=== PATIENT | male | born 1995 | race Caucasian/White ===

== ENCOUNTER 2023-09-27 17:51 | Emergency (ER) | payer OTHER, SELFPAY ==
[2023-09-27 18:06] VITALS: BP 157/106; PULSE 85; TEMP 37.1; O2SAT 99; BMI 29.2
--- NOTE | 2023-09-27 18:10 | XR_ITS ---
[address] [address] Patient Name: JAY JAY PARRA MRN: [id number] date: 1995 Sex: M Assigned Patient Location: ER Current Patient Location: ER Accession/Order Number: [id number] Exam Date: 09/27/2023 18:20 Report Date: 09/27/2023 18:45 At the request of: REUBEN FIELDS Procedure: XR finger RT min 2V Exam: Radiographs: XR finger RT min 2V Reason for exam: finger laceration Comparison: None XR/XR finger RT min 2V IMPRESSION: Wound to the distal right third digit soft tissues. Right finger radiographs are otherwise unremarkable. Electronically authenticated by: CARLEY DALAL Date: 09/27/2023 18:45
--- NOTE | 2023-09-27 18:12 | ED_ITS ---
HPI HPI - General Adult General Chief complaint: Wound/Laceration Stated complaint: BWC-FINGERTIPS HANGING UPPER EXTREMITY INJURY Time Seen by Provider: 09/27/23 18:10 Source: patient Mode of arrival: walk-in Limitations: no limitations History of Present Illness HPI narrative: Patient is a 27-year-old male who presents to the emergency department for the evaluation of a laceration to the distal tip of the right third finger. He was at work when his finger got caught between a propane tank and a wall. He sustained a laceration to the distal fingertip. Bleeding is well-controlled. Unknown last tetanus. No other associated injuries. Related Data Home Medications ?Medication ?Instructions ?Recorded ?Confirmed albuterol 90 mcg/actuation aerosol mcg inhalation 09/27/23 inhaler Previous Rx's ?Medication ?Instructions ?Recorded cephalexin 500 mg capsule 500 mg PO Q8H 10 days #30 caps 09/27/23 ketorolac 10 mg tablet 10 mg PO TID PRN pain #10 tabs 09/27/23 Allergies Allergy/AdvReac Type Severity Reaction Status Date / Time fish derived Allergy Mild Anaphylaxis Verified 09/27/23 18:11 Opioid HPI Opioid Management Most Recent Opioid Data: No Data to Display Review of Systems ROS Constitutional Denies: fever or chills Ears, nose, mouth, and throat Denies: throat pain or nasal congestion Respiratory Denies: shortness of breath Gastrointestinal Denies: nausea or vomiting Musculoskeletal Denies: back pain or neck pain Integumentary/Breast Denies: rash Neurological Denies: headache Hematologic/Lymphatic Denies: easy bruising or easy bleeding Exam Narrative Exam Narrative: Gen.: Awake, alert, in no distress Head: Normocephalic, atraumatic ENT: Moist mucous membranes Respiratory: No respiratory distress Extremities: Moves extremities equally, 2.5 cm laceration extending from the tip of the right middle finger around the dorsal surface of the finger adjacent to the Fingernail.Fingernail is intact, However cuticle is disrupted and edge of the fingernail is above the skin Psych: Normal mood and affect Neuro: No focal neuro deficit Skin: Warm, dry, intact Constitutional Vital Signs, click to edit/add: Last Vital Signs Temp 98.8 F 09/27/23 18:06 Pulse 85 09/27/23 18:06 Resp 18 09/27/23 18:06 BP 157/106 H 09/27/23 18:06 Pulse Ox 99 09/27/23 18:06 O2 Del Method Room Air 09/27/23 18:06 Course Vital Signs Vital signs: Vital Signs Temperature 98.8 F 09/27/23 18:06 Pulse Rate 85 09/27/23 18:06 Respiratory Rate 18 09/27/23 18:06 Blood Pressure 157/106 H 09/27/23 18:06 Pulse Oximetry 99 09/27/23 18:06 Oxygen Delivery Method Room Air 09/27/23 18:06 Temperature 98.8 F 09/27/23 18:06 Pulse Rate 85 09/27/23 18:06 Respiratory Rate 18 09/27/23 18:06 Blood Pressure 157/106 H 09/27/23 18:06 Pulse Oximetry 99 09/27/23 18:06 Oxygen Delivery Method Room Air 09/27/23 18:06 Medical Decision Making MDM Narrative Medical decision making narrative: X-rays are unremarkable, laceration repaired without difficulty. Please see procedure note for details. Keflex and a short course of anti-inflammatories given for home. Follow-up with occupational health for suture removal in 7 to 10 days and return to the ER if symptoms change or worsen Laceration repair: Done under sterile conditions. The use of Shur-Clens prep the area. Digital block with lidocaine 1% was used, approximately 5 cc. The wound was irrigated copiously with normal saline. The wound was explored there was no evidence of foreign material. The laceration was approximated with 4-0 nylon. 6 simple interrupted sutures were placed. 2 sutures of the 6 were placed through the fingernail after reapproximating the nailbed Patient tolerated the procedure well. The patient was neurovascularly intact post. the patient had bacitracin applied to the laceration and a dry sterile dressing was place. The patient will need to follow-up in the next 7-10 days for removal SUPERVISED APC VISIT, PHYSICIAN ATTESTATION: Based on the medical record the care appears appropriate. ? Medical Records Medical records reviewed: Yes I reviewed the patient's medical records Imaging Data xr finger: Attestation: I have reviewed the pertinent imaging results. Radiologist's impression: ITS Impressions Finger X-Ray 09/27/23 18:10 IMPRESSION: Wound to the distal right third digit soft tissues. Right finger radiographs are otherwise unremarkable. Electronically authenticated by: CARLEY DALAL Date: 09/27/2023 18:45 Discharge Plan Discharge Stand Alone Forms: Portal Instructions Chief Complaint: Wound/Laceration Clinical Impression: Laceration of right middle finger Patient Disposition: Home, Self-Care Time of Disposition Decision: 19:02 Condition: Good Prescriptions / Home Meds: New ketorolac 10 mg tablet 10 mg PO TID PRN (Reason: pain) Qty: 10 0RF cephalexin 500 mg capsule 500 mg PO Q8H 10 Days Qty: 30 0RF No Action albuterol 90 mcg/actuation aerosol inhalation Print Language: Telugu Instructions: Laceration (ED) Additional Instructions: Call occupational health on Saturday for follow up instructions. Sutures removed in 7-10 days with occupational health Referrals: [facility] [Outside] - 1 week ()
[2023-09-27] MEDS: SODIUM CHLORIDE 0.9% IRRIG SOLUTION 1,000 ML BOTTLE 1000 ML IRR (18:38)
[2023-09-27] MEDS: LIDOCAINE HCL 1% 100 MG/10 ML MDV INJ (18:38)
[2023-09-27] MEDS: ADACEL DIPH,PERTUSS(ACELL),TET VAC/PF 0.5 ML ADULT SYRINGE IM (18:56)
[2023-09-27] MEDS: BACITRACIN 0.9 GM PACKET 1 PACKET TOPICAL (19:01)
== END 2023-09-27 19:26 | disposition home or self-care (01) ==
PROVIDERS: Emergency Provider Emergency Medicine Emergency Medical Services; PCP Internal Medicine
DX: S61.212A Laceration without foreign body of right middle finger without damage to nail, initial encounter (principal); Z23 Encounter for immunization; W23.0XXA Caught, crushed, jammed, or pinched between moving objects, initial encounter
CPT/HCPCS: 12001; 73140; 90471; 90715; 99283